=== PATIENT | female | born 2000 | race Hispanic/Latino ===

== ENCOUNTER 2021-12-28 08:07 | Emergency (ER) | payer BC ==
[~2021-12-28] VITALS: Ht 154.9 cm; Wt 137.1 kg
[2021-12-28] MEDS ORDERED: BROMPHENIR-PSE118 ML PO (10:03)
== END 2021-12-28 10:11 | disposition home or self-care (01) ==
LOC: FSED 09:25
DX: J02.9 Acute pharyngitis, unspecified (principal); R09.82 Postnasal drip
CPT/HCPCS: 81025; 83518; 99283